=== PATIENT | male | born 1955 | race Caucasian/White ===

== ENCOUNTER 2024-02-07 08:05 | Emergency (ER) | payer OTHER, SELFPAY ==
[2024-02-07 08:09] VITALS: BP 162/84
--- NOTE | 2024-02-07 08:39 | ED.GENMED ---
History of Present Illness
General
Chief Complaint: DVT/Possible Blood Clot
Source: patient
Exam Limitations: none
Time Seen by Provider: 02/07/24 08:25
Nursing documentation reviewed up to this point in time: agreed with
History of Present Illness
History of Present Illness:
pt is a 68 y/o M
h/o HLD
says he has had about 4-5 days of pain posterior L knee adn then developed pain and sewlling into the L calf and foot
he also has had several bug bites on his legs and has one that they noticed yesterday anterior L lower leg that they ambreen a line around the redness; they did not see any progression of erythema outside the line
the past 2 nights he had some night sweats but didn'tt jaye his temperature
he denies cp, sob
has had recent long travel 2 mo ago, drove to [place]
no previous DVT/PE
Past History
Past History
ED Past Medical History: Hypercholesterolemia
ED Past Surgical History: Appendectomy
Social History
Tobacco: Smoker
Personal:
Review of Systems
Review of Systems
Allergies reviewed?: Yes
All Other Systems: Not applicable
Phy Exam
Physical Exam
Physical Exam:
GENERAL: Alert , in no apparent distress
EYE: pupils equal and reactive
NECK: Supple
ENT: o/p clr, mmm.
CARDIAC: Regular rate and rhythm .
LUNGS: Clear breath sounds bilaterally, no acute respiratory distress, no wheezes/rales/rhonchi
ABDOMEN: Soft, without focal tenderness, no r/g, no cvat, normal bowel sounds
NEUROLOGICAL: Alert and oriented, no focal neuro deficits
SKIN: Warm and dry, skin intact.
small raised papule to left anterior lower leg with 1 cm surrounding erythema, notnender, scab in the center; appears like a bug bite
MUSCULOSKELETAL:mild edema to RLE; mild tenderness to posterior calf
normal sensation and pulse distally
normal color and cap refill
warm
no cords
full ROM of knee
small joint effusion
nontender
PSYCH: Normal and appropriate interaction.
Course
Orders/Labs/Results
Orders:
Orders
02/07/24 08:24
Venous Doppler Lwr Ext Left [US Periph Venous LOWER Ext LT] Urgent
Comment:
Reason For Exam: left leg swelling
02/07/24 08:37
CR Knee - Left 4 Or More View* Urgent
Comment:
Reason For Exam: left knee christina
02/07/24 09:20
Complete Blood Count/With Diff Urgent
Comprehensive Metabolic Panel Urgent
Lyme Progressive Urgent
Abnormal Lab Results
02/07/24
09:20
MCH 31.6 H pg
(27.0-31.0)
Glucose 105 H mg/dl
(70-99)
02/07/24 09:20
02/07/24 09:20
Vital Signs
Initial and Last Documented VS:
Initial Vital Signs
Temp Pulse Resp Pulse Ox
98.0 F 67 18 99
02/07/24 08:08 02/07/24 08:08 02/07/24 08:08 02/07/24 08:08
Last Documented Vital Signs
Temp Pulse Resp BP Pulse Ox
98.3 F 60 18 126/71 99
02/07/24 10:23 02/07/24 10:23 02/07/24 10:23 02/07/24 10:23 02/07/24 10:23
MDM/Problems Addressed
Differential Diagnosis Includes:
collado's cyst, dvt, lyme disease, less likely spider bite
MDM/Problems Addressed:
68 Y/O M
hld
lef tknee pain for a ltitle while ofllowed by L lower leg pain/swelling
mostly just swollen and minimal discomfprt
no cp, sob
recent logn travel to [place]
no h/o dvt pe
no color change
does have what looks like bug bite on anterior L lower leg which appears not cellulitic, not c/w abscess
nontender
no ECM rash
did have some chills/sweats the past 2 nights
screening labs reassuring
XR shows some effusion in suprapatellar region but no signfiicant arthritis
us neg for DVT
d/w rads, no collado's cyst seen
lyme pending
compression stocking
return precautions
*Critical Care Note
Total Time (30-74mins, 75-104mins- exclusive of procedures): Not Applicable
ED Attending Note
-
Portions of this chart may have been created with voice recognition software.� Occasional wrong word or��sound alike� substitutions may have occurred due to the inherent limitations of voice recognition software.
Discharge Plan
Departure
Patient Disposition: Home (Routine Discharge)
Date of Disposition: 02/07/24
Time of Disposition: 10:08
Patient with high blood pressure during this ER visit?: Yes
Condition: Fair
Covid-19: Not Applicable
Discharge Problem:
Edema, peripheral, Joint effusion of knee
Instructions: Swollen Joints (DC), BLOOD PRESSURE
Activity Restrictions/Additional Instructions:
YOUR ULTRASOUND WAS NEGATIVE FOR A BLOOD CLOT
YOUR XRAY SHOWED A MILD AMOUNT OF FLUID IN YOUR KNEE JOINT AND A SMALL VASCULAR CALCIFICATION
THE SWELLING IN YOUR CALF COULD BE FROM HAVING SOME ARTHRITIS IN YOUR KNEE
SPECIFICALLY, THERE WAS NO COLLADO'S CYST SEEN TODAY HOWEVER THEY CAN RUPTURE AND LEAK. THEY RESOLVE ON THEIR OWN.
TRY WEARING A COMPRESSION STOCKING DURING THE DAY, TAKE IT OFF AT NIGHT
WATCH THE AREA OF REDNESS AND MONITOR FOR EXTENSION
YOU WERE TESTED FOR LYME DISEASE, WE WILL CALL YOU IF POSITIVE
FOLLOW UP WITH YOUR DOCTOR THIS WEEK OR NEXT
RETURN FOR: WORSE SWELLING, WORSE PAIN, TROUBLE BREATHING, HIGH FEVER, NUMBNESS/TINGLING/WEAKNESS IN THE LEG, COLOR CHANGE OR ANY CONCERNS.
YOUR BLOOD WORK WAS NORMAL
Interventions
Interventions:
*Risk Screen - Suicide Last Done: 02/07/24 08:09
*General Assessment Last Done: 02/07/24 08:09
*Neglect/Abuse Screening Last Done: 02/07/24 08:09
ED- Fall Risk Assessment Last Done: 02/07/24 08:40
*ED COVID-19 Vaccine History Last Done: 02/07/24 10:23
*Nursing Disposition Last Done: 02/07/24 10:23
ED- Cardiac Assessment Last Done: 02/07/24 08:40
ED- Pulmonary Assessment Last Done: 02/07/24 08:40
ED-Peripheral Vascular Assessment Last Done: 02/07/24 08:40
ED-Skin Assessment Last Done: 02/07/24 08:40
Discharge Date and Time
Discharge Date/Time: 02/07/24 10:20
Print Language: TURKMEN
[2024-02-07 08:40] VITALS: BMI 26.3
[2024-02-07 09:30] LABS: % Basophils 0.5 % (0-2); % Eosinophils 2.7 % (0-6); % Immature Granulocytes 0.2 % (0-0.5); % Lymphocytes 23.2 % (20.5-51.1); % Monocytes 9.3 % (1.7-9.3); % Neutrophils 64.1 % (42.2-75.2); Absolute Eosinophils 0.2 10^3/uL (0-0.7); Absolute Lymphocytes 1.5 10^3/uL (1.2-3.4); Absolute Monocytes 0.6 10^3/uL (0.1-0.6); Hematocrit 43.9 % (39.0-52.0); Mean Corp Hgb Conc. 34.2 g/dL (33.0-37.0); Mean Corpuscular Hgb 31.6 pg (27.0-31.0); Mean Corpuscular Volume 92.4 fL (80.0-94.0); Mean Platelet Volume 9.8 fL (7.4-10.4); Nucleated Red Blood Cells % 0 % (-); Platelet Count 256 10^3/uL (130-400); Red Blood Cell Count 4.75 10^6/uL (4.70-6.10); Red Cell Dist. Width 12.2 % (11.5-14.5); White Blood Cell Count 6.3 10^3/uL (4.8-10.8)
[2024-02-07 09:49] LABS: ALT (SGPT) 27 U/L (0-50); AST (SGOT) 29 U/L (17-59); Albumin 4.3 g/dl (3.5-5.0); Alkaline Phosphatase 51 U/L (38-126); Blood Urea Nitrogen 17 mg/dl (9-20); Calcium 9.8 mg/dl (8.4-10.2); Carbon Dioxide 26 mmol/L (22-30); Chloride 101 mmol/L (98-107); Estimated Creatinine Clearance 84 ml/min; Glucose 105 mg/dl (70-99); Potassium 4.4 mmol/L (3.5-5.1); Sodium 137 mmol/L (135-145); Total Bilirubin 0.5 mg/dl (0.2-1.3); Total Protein 6.8 g/dl (6.3-8.2); eGFR > 60.00
[2024-02-07 10:23] VITALS: BP 126/71
--- NOTE | 2024-02-07 10:23 | EDRN ---
Reviewed discharge instructions with patient. Verbalized understanding. Ambulated with steady gait to the lobby.
== END 2024-02-07 10:20 | disposition home or self-care (01) ==
LOC: EMR 08:05
PROVIDERS: Physician Assistant; EMERGENCY PHYSICIAN Student in an Organized Health Care Education/Training Program; FAMILY PHYSICIAN Nurse Practitioner Family
DX: R60.0 Localized edema (principal); M25.462 Effusion, left knee; E78.00 Pure hypercholesterolemia, unspecified; Z90.49 Acquired absence of other specified parts of digestive tract; F17.200 Nicotine dependence, unspecified, uncomplicated
CPT/HCPCS: 99284; 73564; 80053; 85025; 86618; 93971

== ENCOUNTER → 2024-03-12 11:14 | Outpatient (REF) | payer OTHER, SELFPAY | LOC: RAD 11:14 | PROVIDERS: ATTENDING PHYSICIAN Nurse Practitioner Family | DX: F17.210 Nicotine dependence, cigarettes, uncomplicated (principal) | CPT/HCPCS: 71271 ==

== ENCOUNTER → 2024-03-20 10:40 | Outpatient (REF) | payer OTHER, SELFPAY | LOC: RAD 10:40 | PROVIDERS: ATTENDING PHYSICIAN Nurse Practitioner Family | DX: Z13.6 Encounter for screening for cardiovascular disorders (principal) | CPT/HCPCS: 76770 ==

== ENCOUNTER 2024-05-15 06:20 | Day surgery (SDC) | payer OTHER, SELFPAY | END 2024-05-15 10:42 | disposition home or self-care (01) | LOC: GI 06:20 | PROVIDERS: ATTENDING PHYSICIAN Surgery | DX: Z12.11 Encounter for screening for malignant neoplasm of colon (principal); D12.5 Benign neoplasm of sigmoid colon; K57.30 Diverticulosis of large intestine without perforation or abscess without bleeding; Z86.0101 Personal history of adenomatous and serrated colon polyps | CPT/HCPCS: 45385; 88305 ==